=== PATIENT | female | born 1980 ===

== ENCOUNTER 2025-09-15 08:34 | Outpatient (CLI) | payer OTHER, SELFPAY ==
[2025-09-18 00:42] LABS: HPV Source Cervix
[2025-09-22 09:26] LABS: Pap Test Digital Imaging Done
== END 2025-09-15 08:35 | disposition home or self-care (01) ==
PROVIDERS: Visit Provider Registered Nurse
DX: Z12.4 Encounter for screening for malignant neoplasm of cervix (principal)
CPT/HCPCS: 87624; 87625; 88141; 88142; 88175